=== PATIENT | male | born 1960 | race Two or more races ===

== ENCOUNTER → 2017-01-11 | Outpatient (CLI) | payer MEDICARE | END | disposition home or self-care (01) | LOC: CFH 15:15 | PROVIDERS: ATTEND Nurse Practitioner | DX: J84.9 Interstitial pulmonary disease, unspecified (principal); J47.9 Bronchiectasis, uncomplicated; J84.112 Idiopathic pulmonary fibrosis; I28.8 Other diseases of pulmonary vessels; I99.8 Other disorder of circulatory system; J61 Pneumoconiosis due to asbestos and other mineral fibers | CPT/HCPCS: 71250 ==

== ENCOUNTER → 2017-08-10 | Outpatient (CLI) | payer MEDICARE ==
[~2017-08-10] MED LIST: ALLERGY PILL; DIURETIC; LISI-170 PO; METO25TA35 PO; POTASSIUM; TELM1TAB2 PO
== END | disposition home or self-care (01) ==
LOC: CVU 12:57
PROVIDERS: ATTEND Internal Medicine Cardiovascular Disease
DX: I08.0 Rheumatic disorders of both mitral and aortic valves (principal); J84.9 Interstitial pulmonary disease, unspecified; I10 Essential (primary) hypertension; E78.5 Hyperlipidemia, unspecified
CPT/HCPCS: 93306

== ENCOUNTER 2017-08-22 06:26 | Day surgery (SDC) | payer MEDICARE ==
[~2017-08-22] VITALS: Ht 165.1 cm; Wt 99.9 kg
[~2017-08-22 06:26] MED LIST changes: +ATOR40TA78 PO; +BACITRACIN OINT 500U/GM, 15 GM ONE; +CHOL500050 PO; +EPINEPHRINE 1 MG/ML, 1ML ONE; +HYDR12.53 PO; +LEVO5TAB29 PO; +LIDOCAINE/PF 1%, 30ML ONE; +NINT150C PO; +OXYMETAZOLINE NASAL SPRAY 0.05%, 15ML ONE; +TELM80TA PO; +Vitamin E PO; +[UNRECOGNIZED DRUG - OTHER] PO
[2017-08-22 06:54] VITALS: BP 148/78
[2017-08-22] MEDS ORDERED: LIDOCAINE 1%, 2ML ONE (07:05)
[2017-08-22] MEDS ORDERED: LACTATED RINGERS 1,000 ML IV SCH (07:20)
[2017-08-22] MEDS ORDERED: LIDOCAINE 1%, 2ML SQ PRN (07:30)
[2017-08-22] MEDS ORDERED: MIDAZOLAM 1 MG/ML, 2ML ONE (07:58)
[2017-08-22] MEDS ORDERED: FENTANYL PF 100 MCG/2ML ONE ×2 (07:58)
[2017-08-22] MEDS ORDERED: DEXAMETHASONE 4 MG/ML, 1ML ONE (08:01)
[2017-08-22] MEDS ORDERED: ONDANSETRON 2MG/ML, 2ML ONE (08:01)
[2017-08-22] MEDS ORDERED: CEFAZOLIN 1,000 MG ONE (08:01)
[2017-08-22] MEDS ORDERED: PROPOFOL 10 MG/ML, 20ML ONE (08:01)
[2017-08-22] MEDS ORDERED: SUCCINYLCHOLINE 20 MG/ML, 10ML ONE (08:01)
[2017-08-22] MEDS ORDERED: LIDOCAINE-MPF 2% ,5ML ONE (08:29)
[2017-08-22] MEDS ORDERED: EPHEDRINE 50 MG/ML, 1ML ONE (09:00)
[2017-08-22] MEDS ORDERED: PROMETHAZINE 25 MG/ML, 1ML IV PRN (09:30)
[2017-08-22] MEDS ORDERED: hydrALAzine 20 MG/ML, 1ML IV PRN (09:30)
[2017-08-22] MEDS ORDERED: FENTANYL PF 100 MCG/2ML IV PRN (09:30)
[2017-08-22] MEDS ORDERED: MEPERIDINE/PF 25MG/0.5ML IVPush PRN (09:30)
[2017-08-22] MEDS ORDERED: ACETAMINOPHEN 325 MG TABLET PO PRN (09:30)
[2017-08-22] MEDS ORDERED: ALBUTEROL/IPRATROPIUM 2.5MG/0.5MG, 3 ML NPPB PRN (09:30)
[2017-08-22] MEDS ORDERED: HYDROmorphone 1 MG/ML, 1ML IV PRN (09:30)
[2017-08-22] MEDS ORDERED: ONDANSETRON 2MG/ML, 2ML IVPush PRN (09:30)
[2017-08-22] MEDS ORDERED: MIDAZOLAM 1 MG/ML, 2ML IV PRN (09:30)
[2017-08-22] MEDS ORDERED: OXYcodone 5 MG/5 ML ORAL.SOL UDC PO PRN (09:30)
[2017-08-22] MEDS ORDERED: DIAZEPAM 5 MG/ML, 2ML IVPush PRN (09:30)
[2017-08-22] MEDS ORDERED: ACETAMINOPHEN 650 MG/20.3 ML UDC ONE (09:59)
[2017-08-22] MEDS ORDERED: ACETAMINOPHEN 325 MG TABLET ONE (09:59)
[2017-08-22] MEDS: LABETALOL 5MG/ML, 20ML IV PRN ×2 (10:06→10:21)
[2017-08-22] MEDS ORDERED: hydrALAzine 20 MG/ML, 1ML ONE (10:25)
[2017-08-22] MEDS ORDERED: KETOROLAC 30 MG/1 ML ONE (14:19)
[2017-08-22] MEDS ORDERED: ROCURONIUM 10 MG/ML ONE (14:19)
== END 2017-08-22 11:30 ==
LOC: OUT 06:26
PROVIDERS: ATTEND Otolaryngology
DX: J34.2 Deviated nasal septum (principal); S02.2XXA Fracture of nasal bones, initial encounter for closed fracture; I10 Essential (primary) hypertension; E78.5 Hyperlipidemia, unspecified; Z87.39 Personal history of other diseases of the musculoskeletal system and connective tissue; Z88.5 Allergy status to narcotic agent; J34.3 Hypertrophy of nasal turbinates; X58.XXXA Exposure to other specified factors, initial encounter; Y93.89 Activity, other specified; Y92.89 Other specified places as the place of occurrence of the external cause; Y99.8 Other external cause status
CPT/HCPCS: 30140; 30520; J0171; J0330; J0360; J0690; J1100; J1885; J2250; J2405; J2704; J3010; J3490; J7120

== ENCOUNTER → 2017-12-26 | Outpatient (CLI) | payer MEDICARE ==
[~2017-12-26] MED LIST changes: -BACITRACIN OINT 500U/GM, 15 GM ONE; -EPINEPHRINE 1 MG/ML, 1ML ONE; -LIDOCAINE/PF 1%, 30ML ONE; -OXYMETAZOLINE NASAL SPRAY 0.05%, 15ML ONE
== END ==
LOC: CFH 14:15
PROVIDERS: ATTEND Nurse Practitioner
DX: J84.9 Interstitial pulmonary disease, unspecified (principal); J47.9 Bronchiectasis, uncomplicated
CPT/HCPCS: 71250

== ENCOUNTER 2019-10-29 11:59 | Outpatient (CLI) | payer MEDICARE ==
[~2019-10-29 11:59] MED LIST changes: +HYDR12.517 PO; -HYDR12.53 PO; +REGADENOSON 0.4 MG/5 ML SYRINGE ONE
== END 2019-10-29 23:59 | disposition home or self-care (01) ==
LOC: CFH 11:59
PROVIDERS: ATTEND Physician Assistant Medical
DX: I10 Essential (primary) hypertension (principal); I35.1 Nonrheumatic aortic (valve) insufficiency
CPT/HCPCS: 78452; 93017; A9502; J2785